=== PATIENT | female | born 1970 | race Caucasian/White ===

== ENCOUNTER 2018-06-22 23:50 | Emergency (ER) | payer OTHER ==
[~2018-06-22] VITALS: Ht 149.9 cm; Wt 61.2 kg
[~2018-06-22 23:50] MED LIST: LITHIUM CARBON300 M1 PEG; LYSTEDA650 MG PO; OLANZAPINE5 MG PO; OXAZEPAM15 MG PO; VENLAFAXINE HCL75 MG PO; Z.0.ZOLOFT100 MG PO
--- OUTSIDE RECORDS SUMMARY | 2018-06-22 23:53 | XMS REPORT ---
Author Author [facility] Address Unknown Phone Unavailable Care Team Providers Care S[employer] Data Architect Name Role Phone Samantha NUR Unavailable Unavailable Problems This patient has no known problems. Allergies, Adverse Reactions, Alerts This patient has no known allergies or adverse reactions. Medications This patient has no known medications. Results Test Description Test Time Test Comments Text Results Atomic Results Result Comments CHEST SINGLE (PORTABLE) [place] [address] Patient Name: СВЕТЛАНА HUBBARD MR #: [id number] : 1970 Age/Sex: 47/F Req #: [id number] Adm Physician: Ordered by: ASIA NUR MD Report #: [id number] Location: ER Room/Bed: Procedure: [id number] DX/CHEST SINGLE (PORTABLE) Exam Date: 06/19/17 Exam Time: 0720 REPORT STATUS: Signed PROCEDURE: CHEST SINGLE (PORTABLE) COMPARISON: 04/22/2013. INDICATIONS: SYNCOPE, WEAKNESS TODAY FINDINGS: The lungs are well- inflated. No focal airspace consolidation, pleural effusion, or pneumothorax. Cardiomediastinal contour and pulmonary vasculature are within normal limits for portable, AP technique and when accounting for rightward patient rotation. No acute osseous abnormality. CONCLUSION: No acute cardiopulmonary abnormality. Dictated by: Nayana Gross M.D. on 06/19/2017 at 7:56 Electronically approved by: Nayana Gross M.D. on 06/19/2017 at 7:56 Dictated By: NAYANA GROSS MD 5 Transcribed By: LATOYA on 06/19/17755 COPY TO: ASIA NUR MD CT BRAIN WO [place] [address] Patient Name: СВЕТЛАНА HUBBARD MR #: [id number] : 1970 Age/Sex: 47/F Req #: [id number] Adm Physician: Ordered by: ASIA NUR MD Report #: [id number] Location: ER Room/Bed: Procedure: [id number] CT/CT BRAIN WO Exam Date: 06/19/17 Exam Time: 0720 REPORT STATUS: Signed Exam: Head CT without contrast History: Syncope Comparison studies: None Technique: Axial images were obtained from the skull base to the vertex. Coronal and sagittal images reconstructed from the axial data. Intravenous contrast: None Findings: Scalp: No abnormalities. Bones: No fractures, blastic or lytic lesions. Brain sulci: Appropriate for age. Ventricles: Normal in size and configuration. No hydrocephalus. Extra-axial spaces: No masses, no fluid collection. Parenchyma: No abnormal densities. No masses, acute hemorrhage, acute or chronic vascular insults. Sellar/suprasellar region: No abnormalities. Craniocervical junction: Patent foramen magnum. No Chiari one malformation. IMPRESSION: No abnormalities. Signed by: Dr. Nayana Adams M.D. on 06/19/2017 8:06 AM Dictated By: NAYANA ADAMS MD 5 Transcribed By: NANCY on 06/19/17805 COPY TO: ASIA NUR MD
== END 2018-06-23 01:30 | disposition home or self-care (01) ==
LOC: ER 23:50
DX: R07.89 Other chest pain (principal); F31.9 Bipolar disorder, unspecified
CPT/HCPCS: 99282

== ENCOUNTER 2022-05-22 17:39 | Emergency (ER) | payer BC ==
[~2022-05-22] VITALS: Ht 149.9 cm; Wt 68.2 kg
[2022-05-22] MEDS ORDERED: PRISTIQ25 MG (18:41)
[2022-05-22] MEDS ORDERED: ZESTRIL5 MG (18:41)
[2022-05-22] MEDS ORDERED: TRAZODONE HCL300 MG PO (18:41)
[2022-05-22] MEDS ORDERED: SEROQUEL100 MG PO (18:41)
[2022-05-22] MEDS ORDERED: IBUPROFEN 600 MG TAB ONE (20:09)
== END 2022-05-22 20:14 | disposition home or self-care (01) ==
LOC: FSED 17:50 → MERGE 17:50 → FSED 20:14
DX: R50.9 Fever, unspecified (principal); J10.1 Influenza due to other identified influenza virus with other respiratory manifestations; B34.9 Viral infection, unspecified; F32.A Depression, unspecified; F41.9 Anxiety disorder, unspecified
CPT/HCPCS: 71046; 83518; 87400; 99283